=== PATIENT | male | born 1995 | race Caucasian/White ===

== ENCOUNTER 2024-04-22 13:02 | Day surgery (SDC) | payer OTHER ==
[~2024-04-22] VITALS: Ht 167.6 cm; Wt 84.3 kg
[~2024-04-22 13:02] MED LIST: LISI10TA22 PO
[2024-04-22] MEDS ORDERED: LR 1,000 ML IV SCH ×2 (13:30→16:50)
[2024-04-22] MEDS ORDERED: fentaNYL 250 MCG/5 ML INJECTION As Ordered ONE (14:15)
[2024-04-22] MEDS ORDERED: propofoL 200 MG/20 ML VIAL As Ordered ONE (14:16)
[2024-04-22] MEDS ORDERED: LIDOCAINE 2% 100MG/5ML SDV (FOR ANES.) As Ordered ONE (14:16)
[2024-04-22] MEDS ORDERED: ONDANSETRON 4MG 2ML VIAL As Ordered ONE (14:16)
[2024-04-22] MEDS ORDERED: MIDAZOLAM INJ 2MG/2ML VIAL As Ordered ONE (14:16)
[2024-04-22] MEDS ORDERED: ACETAMINOPHEN 1000MG 100ML IV BAG As Ordered ONE (14:17)
[2024-04-22] MEDS ORDERED: BACITRACIN OINTMENT 30GM TUBE As Ordered ONE (15:14)
[2024-04-22] MEDS: ceFAZolin SOD 2 GM in IV 1 EA IV ONE (15:44)
[2024-04-22] MEDS ORDERED: GLYCOPYRROLATE INJ 0.2 MG/ML 2 ML VIAL As Ordered ONE (16:03)
[2024-04-22] MEDS ORDERED: fentaNYL 100 MCG/2 ML INJECTION IV PRN (16:50)
[2024-04-22] MEDS ORDERED: HYDROMORPHONE HCL 0.5 MG/ 0.5 ML SYRINGE IV PRN (16:50)
[2024-04-22] MEDS ORDERED: ONDANSETRON 4MG 2ML VIAL IV PRN (16:50)
[2024-04-22] MEDS: oxyCODONE 5MG TAB PO PRN (17:10)
[2024-04-22] MEDS ORDERED: OXYC1TAB23 PO (17:22)
[2024-04-22 18:25] VITALS: BP 134/78; TEMP 97.7; O2SAT 97
== END 2024-04-22 18:45 | disposition home or self-care (01) ==
LOC: M SDC 13:02
PROVIDERS: ATTEND Urology
DX: N47.1 Phimosis (principal); N53.8 Other male sexual dysfunction; I10 Essential (primary) hypertension; Z79.899 Other long term (current) drug therapy; F17.290 Nicotine dependence, other tobacco product, uncomplicated
CPT/HCPCS: 54161; 88304; J0131; J0690; J1100; J1596; J2250; J2405; J3010